=== PATIENT | male | born 1960 | race Caucasian/White ===

== ENCOUNTER 2024-04-18 15:58 | Emergency (ER) | payer SELFPAY ==
--- NOTE | ~2024-04-18 | XR_ITS ---
EXAMINATION: XR ABDOMEN KUB CLINICAL INDICATION: Pain. COMPARISON: None available. TECHNIQUE: AP view of the abdomen. FINDINGS: The bowel gas pattern is normal with no evidence of ileus or obstruction. No unusual soft tissue calcifications are noted. The bones are unremarkable. XR/XR KUB IMPRESSION: Unremarkable examination. Electronically signed by: Mohinder Shaw MD 04/19/2024 01:30 AM EDT RP
[2024-04-18 16:37] VITALS: BP 145/92; PULSE 98; RESP 18; TEMP 36.2; O2SAT 98; BMI 29.7
[2024-04-18 16:57] LABS: MANUAL DIFF FLAG NO
[2024-04-18 17:05] LABS: Basophils Percent Auto 0.6 % (0-2); Eosinophils Absolute Auto 0.3 X10*3/uL (0.0-0.4); Eosinophils Percent Auto 3.6 % (0-4); Hematocrit 45.1 % (42.0-52.0); Hemoglobin 14.9 g/dl (14.0-18.0); Imm Gran Abs Auto 0.03 X10*3/uL (0.00-0.03); Imm Gran Pct Auto 0.4 % (0.0-0.4); Lymphocytes Absolute Auto 3.8 X10*3/uL (1.2-4.9); Lymphocytes Percent Auto 52.6 % (20-40); Mean Corpuscular Hemoglobin 28.7 pg (27.0-33.0); Mean Corpuscular Volume 86.7 fL (80.0-98.0); Mean Platelet Volume 9.5 fL (9.4-12.4); Monocytes Absolute Auto 0.7 X10*3/uL (0.1-1.2); Monocytes Percent Auto 10.2 % (2-11); Neutrophils Absolute Auto 2.3 x10*3/uL (2.0-8.3); Neutrophils Percent Auto 32.6 % (45-73); Platelet Count 301 X10*3/uL (160-400); Red Cell Distribution Width 13.6 % (11.0-16.0); White Blood Count 7.2 X10*3/uL (4.8-10.8)
--- NOTE | 2024-04-18 17:08 | ED_ITS ---
HPI - Abdominal Pain General Chief Complaint: Abdominal Pain Stated Complaint: constipation Time Seen by Provider: 04/19/24 01:02 Source: patient and other (Caregiver) Mode of arrival: ambulatory History of Present Illness ED Provider: pantera BONDS narrative: Patient initially comes for constipation then he says moving his bowels when examined patient complaining of umbilical hernia which is reducible nontender patient does have developmental delay no vomiting Related Data Allergies Allergy/AdvReac Type Severity Reaction Status Date / Time No Known Allergies Allergy Verified 04/18/24 16:39 Review of Systems Review of Systems Yes Unobtainable due to mental condition PMFSH Social History Social History Advance Directives: No Advance Directives Information Provided: No Physical Exam ED Vital Signs: Vital Signs - 24 hr 04/18/24 20:17 04/19/24 01:42 04/19/24 02:10 Temperature 97.1 F 98 F 98 F Pulse Rate 78 87 87 Respiratory Rate 16 16 16 Blood Pressure 141/85 H 120/77 120/77 Pulse Oximetry 95 96 96 Oxygen Delivery Method Room Air Room Air Room Air BMI result Body Mass Index 29.7 Appearance: Alert. Awake. No acute distress. Eyes: PERRLA, No Nystagmus ENT: Pharynx normal. Oral Mucosa moist Neck: Normal inspection. Neck supple. CVS: Normal heart rate and rhythm. Pulses normal. Respiratory: No respiratory distress. Equal air entry bilateral, no wheezing/rales/rhonchi Abdomen: Soft and nontender. Small reducible umbilical hernia nontender Bowel sounds are present, no mass palpable, no CVA tenderness Skin: Skin warm and dry. Normal skin color. Normal skin turgor. Extremities: No lower extremity edema. No calf tenderness Neuro: Alert and awake No motor deficit. Course Course Course Narrative: Rapid medical exam performed by Berenice Mullins PA-C. 63-year-old male with history of developmental delays, [facility] a [facility], presents with abdominal pain. Patient was complaining that his ?belly abdomen hurt?. Patient struggles with constipation, however he has been having regular bowel movements. No nausea vomiting or fevers. The pain is generalized. Patient unable to describe. On exam, the patient's abdomen is soft, minimally distended versus obese abdomen, I can detect a ventral wall hernia, without evidence of incarceration. No guarding on exam. We will obtain screening labs, the patient will return to the weight room pending full assessment. Medical Decision Making Medical Decision Making [facility] Narrative: Patient with good bowel sounds soft abdomen with reducible umbilical hernia discharge patient back to [facility] labs are stable, KUB negative Differential Diagnosis Differential Diagnoses: The differential diagnosis associated with the presentation includes Fecal impaction/umbilical hernia/small-bowel obstruction Lab Data [facility] Lab Attestation statement: I reviewed the patient's lab results. 04/18/24 16:53 04/18/24 16:53 Labs: Lab Results 04/18/24 Range/Units 16:53 WBC 7.2 (4.8-10.8) X10*3/uL RBC 5.20 (4.60-5.80) X10*6/uL Hgb 14.9 (14.0-18.0) g/dl Hct 45.1 (42.0-52.0) % MCV 86.7 (80.0-98.0) fL MCH 28.7 (27.0-33.0) pg MCHC 33.0 (31.0-36.0) g/dl RDW 13.6 (11.0-16.0) % Plt Count 301 (160-400) X10*3/uL MPV 9.5 (9.4-12.4) fL Immature Gran % (Auto) 0.4 (0.0-0.4) % Neut % (Auto) 32.6 L (45-73) % Lymph % (Auto) 52.6 H (20-40) % [place] % (Auto) 10.2 (2-11) % Eos % (Auto) 3.6 (0-4) % Baso % (Auto) 0.6 (0-2) % Lymph # (Auto) 3.8 (1.2-4.9) X10*3/uL [place] # (Auto) 0.7 (0.1-1.2) X10*3/uL Eos # (Auto) 0.3 (0.0-0.4) X10*3/uL Baso # (Auto) 0.0 (0.0-0.2) X10*3/uL Abs Immat Gran (auto) 0.03 (0.00-0.03) X10*3/uL Absolute Neuts (auto) 2.3 (2.0-8.3) x10*3/uL Absolute Nucleated RBC 0.000 (0.0-0.012) X10*3/uL Nucleated RBC % (auto) 0.0 (0.0-0.2) /100WBC Sodium 141 (135-145) mmol/L Potassium 4.1 (3.3-5.1) mmol/L Chloride 109 H (96-108) mmol/L Carbon Dioxide 24 (22-29) mmol/L Anion Gap 12 (12-20) BUN 24 H (9-16) mg/dL Creatinine 0.87 (0.5-1.4) mg/dL Estim Creat Clear Calc 78.3 Estimated GFR > 60 Random Glucose 91 (60-115) mg/dL Calcium 10.4 H (8.4-10.2) mg/dL Magnesium 2.4 (1.6-2.6) mg/dL Total Bilirubin 0.2 (0.0-1.0) mg/dL AST 26 (5-37) U/L ALT 24 (0-40) U/L Alkaline Phosphatase 84 (39-117) U/L Total Protein 8.1 H (6.5-8.0) g/dL Albumin 4.5 (3.5-5.0) g/dL Lipase 38 (8-78) U/L Discharge Plan Discharge Clinical Impression: Reducible umbilical hernia Patient Disposition: Home, Self-Care Instructions: Umbilical Hernia (ED) Additional Instructions: No signs of significant constipation or umbilical hernia Umbilical hernia is reducible Follow with surgeon if pain in hernia continue Referrals: Hayden Phillips MD [Physician] - Interventions: ED Discharge Assessment Last Done: 04/19/24 02:10 Discharge Date/Time: 04/19/24 02:12 Print Language: Egyptian
[2024-04-18 17:48] LABS: Alanine Aminotransferase 24 U/L (0-40); Albumin Level 4.5 g/dL (3.5-5.0); Alkaline Phosphatase 84 U/L (39-117); Anion Gap 12 (12-20); Aspartate Amino Transferase 26 U/L (5-37); Bilirubin Total 0.2 mg/dL (0.0-1.0); Blood Urea Nitrogen 24 mg/dL (9-16); Calcium 10.4 mg/dL (8.4-10.2); Carbon Dioxide 24 mmol/L (22-29); Chloride 109 mmol/L (96-108); Creatinine Clr Calc Pharmacy 78.3; Estimated Glomerular Filt Rate > 60; Glucose Random 91 mg/dL (60-115); Lipase 38 U/L (8-78); Magnesium 2.4 mg/dL (1.6-2.6); Potassium 4.1 mmol/L (3.3-5.1); Sodium 141 mmol/L (135-145); Total Protein 8.1 g/dL (6.5-8.0)
[2024-04-18 20:17] VITALS: BP 141/85; PULSE 78; RESP 16; TEMP 36.2; O2SAT 95
--- NOTE | 2024-04-18 23:09 | PC.NURSE ---
Pt made loud statements to triage staff about wait times and stated he was leaving, would seek care elsewhere. Attempted redirection with no success.
[2024-04-19 01:42] VITALS: BP 120/77; PULSE 87; RESP 16; TEMP 36.6; O2SAT 96
[2024-04-19 02:10] VITALS: BP 120/77; PULSE 87; RESP 16; TEMP 36.6; O2SAT 96
== END 2024-04-19 02:12 | disposition home or self-care (01) ==
PROVIDERS: Physician Assistant Medical; Emergency Provider Internal Medicine
DX: K42.9 Umbilical hernia without obstruction or gangrene (principal); K59.00 Constipation, unspecified; Z79.899 Other long term (current) drug therapy
CPT/HCPCS: 36415; 74018; 80053; 83690; 83735; 85025; 99283

== ENCOUNTER 2024-11-02 18:04 | Emergency (ER) | payer MEDICAID, SELFPAY ==
--- NOTE | ~2024-11-02 | XR_ITS ---
CLINICAL HISTORY: eval for FB 2 view pelvis Comparison: None Findings: No acute fracture or dislocation. Mild degenerative changes of the lumbar spine. Bilateral hip joint spaces are preserved. Overlying the base of the penis there is a paper clip measuring 5.4 cm in length and 1.3 cm in width. IMPRESSION: There is a metallic paper clip within the base of the penis, possibly within the urethra. This document has been electronically signed by: Chau Smith MD on 11/02/2024 19:14:24
--- NOTE | ~2024-11-02 | CT_ITS ---
CLINICAL HISTORY: diffuse abd distention, known paperclip in penis CT Abdomen and Pelvis WO Contrast COMPARISON: CR/CA - XR PELVIS 1-2V - 11/02/24 18:45 EDT FINDINGS: Detail limited by artifacts. Normal liver. Normal spleen. Normal kidneys. Normal adrenal glands. Normal pancreas. No visible cholelithiasis. No biliary dilation. No evidence of bowel obstruction or colitis. Normal appendix. Unremarkable bladder. No ascites. No pneumoperitoneum. No lymphadenopathy. No acute fracture. Degenerative changes in the spine. No abdominal aortic aneurysm. Bilateral fat-containing inguinal hernias. Fat-containing umbilical hernia. Metallic foreign body (paper clip) in the region of the penile urethra, similar to prior. IMPRESSION: No acute findings. Unchanged metallic foreign body (paper clip) in the region of the penile urethra. This document has been electronically signed by: Joby Porter MD on 11/03/2024 02:43:11
[2024-11-02 18:27] VITALS: BP 127/99; PULSE 108; RESP 16; TEMP 36.6; O2SAT 95; BMI 26.2
--- NOTE | 2024-11-02 18:31 | ED.MALEGU ---
HPI - Male Genitourinary General Chief complaint: Skin/Abscess/Foreign Body Stated complaint: paper clip enlarged in penis 6 mos. Time Seen by Provider: 11/03/24 00:22 Source: patient and other ([facility] staff) Mode of arrival: ambulatory Limitations: no limitations History of Present Illness ED Provider: Dr. Yaneth Trevizo HPI Narrative: Patient comes to the emergency room accompanied by [place] [facility]. Patient has a developmental delay and unable to give much history. The story is a bit strange. Seems that patient came to the emergency room today because his director of strategic marketing noticed that his abdomen has been distended for weeks. Patient does not complaining of any abdominal pain. Initially they were giving patient MiraLax without any successful bowel movements. Also, the director of strategic marketing mentioned that a [place] [facility] staff was reviewing papers medical records and paperwork and seems that and imaging from [facility] from April of 2024 showed a retained foreign body in the penis, a paper clip. Seems that this was not addressed and patient did not complain about any pain hematuria or dysuria and was forgotten. Today when they reviewed the patient's records, they brought the patient to the emergency room to address both, the paperclip in patient's penis and the abdominal distention/chronic constipation Related Data Previous Rx's ?Medication ?Instructions ?Recorded polyethylene glycol 3350 17 17 g PO BID PRN laxative effect 11/03/24 gram/dose oral powder (Miralax) #476 grams Allergies Allergy/AdvReac Type Severity Reaction Status Date / Time No Known Allergies Allergy Verified 11/02/24 18:29 Review of Systems Review of Systems: Patient is poor historian, has developmental delay, does not have any complaints Yes Unobtainable due to mental condition [facility] Past Medical History Medical History (Updated 11/03/24 @ 03:22 by Yaneth Trevizo MD) History of developmental delay Social History Social History Advance Directives: No Advance Directives Information Provided: Yes Physical Exam Vital Signs: Vital Signs: Last Vital Signs Temp 98.5 F 11/02/24 23:43 Pulse 80 11/02/24 23:43 Resp 18 11/02/24 23:43 BP 131/76 11/02/24 23:43 Pulse Ox 95 11/02/24 23:43 O2 Del Method Room Air 11/02/24 23:43 BMI result Body Mass Index 26.2 Const: Other: Appearance: Alert. Oriented X3. No acute distress. Eyes: Pupils equal, round and reactive to light. ENT: Pharynx normal. Neck: Normal inspection. Neck supple. No lymph nodes noted. No crepitus CVS: Normal heart rate and rhythm. Pulses normal. Normal S1 and S2 Respiratory: No respiratory distress. Breath sounds normal. No Wheezing. No rales Abdomen: Soft , distended, does not seem to be in pain despite deep palpation in all 4 quadrants Normal male genitalia, does not seem to have any discharge or obvious deformity Skin: Skin warm and dry. Normal skin color. Normal skin turgor. Extremities: No lower extremity edema. No Lacerations. No Rash Neuro: Oriented X 3. No motor deficit. No sensory deficit. Moving all extremities. No slurred speech. CN 2 through 12 grossly intact Psych: calm, cooperative, normal affect Course Course Course Narrative: This is a Rapid Medical Exam performed in triage by Lillian Serrano PA-C. Full HPI, ROS and PE to be performed by primary ED provider. 63-year-old male with a past medical history developmental delay presenting to the ED c/o FB (paperclip) to penis x months. [facility] staff states they were reviewing patient's medical paperwork and noted he had foreign body in penis noted back to imaging from April at [facility]. On chart review patient has visible paper clip in penis on KUB dating to 04/18/2024 however was never read by Radiology. Concerned foreign body still in place. Patient denies complaints at present. No urinary complaints PE: Ambulating with steady gait. Nontoxic appearing Plan: UA, CT mg, pelvic x-ray Medical Decision Making Medical Decision Making [facility] Narrative: KUB: Metallic paper clip in the within the urethra And KUB of March of 2025, the tip a clip was already there. Patient is unable to give good history. However, patient's seems to be on bothered by it and did not tell anybody. CT scan of the abdomen/pelvis pending. Patient likely has severe constipation as well. I discuss the patient with Dr. Isael purdy from urology. Recommendations: Outpatient follow-up Differential Diagnosis Differential Diagnoses: The differential diagnosis associated with the presentation includes (Constipation, small-bowel obstruction, urethral foreign body) Lab Data MDM Lab Attestation statement: I reviewed the patient's lab results. Labs: Lab Results 11/02/24 Range/Units 20:46 Urine Color Yellow Urine Appearance Clear Urine pH 5.5 (5.0-9.0) Ur Specific [place] >= 1.030 H (1.005-1.025) Urine Protein Negative (Neg-Trace) mg/dL Urine Glucose (UA) Negative (Negative) mg/dL Urine Ketones Trace (Negative) mg/dL Urine Blood Negative (Negative) Urine Nitrite Negative (Negative) Ur Leukocyte Esterase Small (1+) H (Negative) Urine RBC 0-2 (0-2) /HPF Urine WBC 11-20 H (0-5) /HPF Ur Squamous Epith Cells 0-2 (0-2) /HPF Urine Bacteria None Seen (None Seen) Hyaline Casts 0-2 (0-2) /LPF Independent Interpretation I performed an independent interpretation of an: Plain X-Ray and CT Scan Radiology Impression Discussion of test interpretation with radiology: I have reviewed the radiologist's reading. Radiologist Impression: Detail limited by artifacts. Normal liver. Normal spleen. Normal kidneys. Normal adrenal glands. Normal pancreas. No visible cholelithiasis. No biliary dilation. No evidence of bowel obstruction or colitis. Normal appendix. Unremarkable bladder. No ascites. No pneumoperitoneum. No lymphadenopathy. No acute fracture. Degenerative changes in the spine. No abdominal aortic aneurysm. Bilateral fat-containing inguinal hernias. Fat-containing umbilical hernia. Metallic foreign body (paper clip) in the region of the penile urethra, similar to prior. IMPRESSION: No acute findings. Unchanged metallic foreign body (paper clip) in the region of the penile urethra. No acute fracture or dislocation. Mild degenerative changes of the lumbar spine. Bilateral hip joint spaces are preserved. Overlying the base of the penis there is a paper clip measuring 5.4 cm in length and 1.3 cm in width. IMPRESSION: There is a metallic paper clip within the base of the penis, possibly within the urethra. Independent Historian Clinical information obtained from an independent historian. History obtained from or confirmed by: Other Discharge Plan Discharge Clinical Impression: Constipation, Foreign body in male urethra Patient Disposition: Home, Self-Care Instructions: Constipation (ED) Additional Instructions: Please follow-up with your primary care physician tomorrow. If you have any worsening or new symptoms, please return to the emergency room or call 911 Prescriptions: New polyethylene glycol 3350 [Miralax] 17 gram/dose powder 17 g PO BID PRN (Reason: laxative effect) Qty: [phone] Referrals: Christelle Wright MD [Physician] - 11/06/24 Print Language: Chadian
[2024-11-02 20:53] LABS: Appearance Urine Clear; Color Urine Yellow; Glucose Urine UA Negative (Negative); Leukocyte Esterase Urine Small (1+) (Negative); Nitrite Urine Negative (Negative); PH 5.5 (5.0-9.0); Specific Gravity - Urine >= 1.030 (1.005-1.025); UMIC TRIGGER UACC YES; Urine Blood Negative (Negative); Urine Ketones Trace mg/dL (Negative); Urine Protein Negative (Neg-Trace)
[2024-11-02 20:58] LABS: Bacteria Urine None Seen (None Seen); Hyaline Casts Urine 0-2 /LPF (0-2); RBC Urine 0-2 /HPF (0-2); Squamous Epithelial Cell Urine 0-2 /HPF (0-2); UACC Culture Trigger YES
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
--- OUTSIDE RECORDS SUMMARY | 2024-11-02 21:09 | XMS_ITS | Clinical Summary ---
Author Organization [facility] Address [address] [place] [address] Care Team Providers Care Supervisor Cook Room Name Role Phone Provider, Conversion MD Primary Care Provider Un available Allergies No known active allergies Medications No known medications Active Problems No known active problems Immunizations Name Administration Dates Next Due Covid-19 MRNA Vaccine - Pfizer 12+ (Purple Cap) 11/29/2020,11/08/2020 Social History Tobacco Use Types Packs/Day Years Used Date Smoking Tobacco: Never Assessed Sex and Gender Information Value Date Recorded Sex Assigned at Not on file Gender Identity Not on file Sexual Orientation Not on file Last Filed Vital Signs Vital Sign Reading Time Taken Comments Blood Pressure - - Pulse 90 11/22/2020 11:41 AM EDT Temperature 37 ??C (98.6 ??F) 11/22/2020 11:41 AM EDT Respiratory Rate - - Oxygen Saturation 95% 11/22/2020 11:41 AM EDT Inhaled Oxygen Concentration - - Weight 81.6 kg (180 lb) 11/22/2020 11:41 AM EDT Height 162.6 cm (5' 4 ) 11/22/2020 11:41 AM EDT Body Mass Index 30.9 11/22/2020 11:41 AM EDT Plan of Treatment Health Maintenance Due Date Last Done Comments Hepatitis C Virus Screening 1960 HIV Screening 12/27/1972 DTaP/Tdap/Td Vaccines (1 - Tdap) 12/27/1978 Colonoscopy 12/27/2004 Pneumococcal Vaccines 50+ (1 of 1 - PCV) 12/27/2009 Zoster (Shingles) Vaccine (1 of 2) 12/27/2009 Influenza Vaccine 02/24/2024 COVID-19 Vaccine ( - 2023-2 5 season) 2024 11/29/2020, 11/08/2020 RSV Vaccine 60 years and older and Patients (1 - 1-dose 75+ series) 12/27/2034 Hepatitis B Vaccines Aged Out No long er eligible based on patient's age to complete this topic Pneumococcal Vaccine: Pediatric (0-5 Years) and At-Risk Patients (6 to 49 Years) Aged Out No longer eligible b ased on patient's age to complete this topic Care Teams Supervisor Cook Room Relationship Specialty Start Date End Date Provider, MD Kristal PCP - General 03/10/13
[2024-11-02 23:43] VITALS: BP 131/76; PULSE 80; RESP 18; TEMP 36.9; O2SAT 95
[2024-11-03 03:31] VITALS: BP 131/76; PULSE 80; RESP 18; TEMP 36.9; O2SAT 95
[2024-11-03 03:59] LABS: CT PCR NOT DETECTED (Not Detect.); NG PCR NOT DETECTED (Not Detect.)
== END 2024-11-03 03:31 | disposition home or self-care (01) ==
PROVIDERS: Physician Assistant; Emergency Provider Emergency Medicine
DX: K59.00 Constipation, unspecified (principal); T19.4XXA Foreign body in penis, initial encounter; W44.E0XA Non-magnetic metal object unspecified, entering into or through a natural orifice, initial encounter; R10.2 Pelvic and perineal pain; R62.50 Unspecified lack of expected normal physiological development in childhood; Z79.899 Other long term (current) drug therapy
CPT/HCPCS: 72170; 74176; 81001; 87086; 87491; 87591; 99283; 99284

== ENCOUNTER → 2024-11-02 18:31 | Outpatient (BNV) | payer SELFPAY | PROVIDERS: Visit Provider Radiology Diagnostic Radiology | DX: T19.4XXA Foreign body in penis, initial encounter (principal) | CPT/HCPCS: 72170 ==

== ENCOUNTER → 2024-11-03 00:31 | Outpatient (BNV) | payer MEDICAID, SELFPAY | PROVIDERS: Emergency Provider Emergency Medicine; Visit Provider Radiology Diagnostic Radiology | DX: R14.0 Abdominal distension (gaseous) (principal) | CPT/HCPCS: 74176 ==

== ENCOUNTER 2024-12-14 10:09 | Outpatient (AMB) | payer MEDICAID, SELFPAY ==
--- NOTE | 2024-12-14 10:23 | MHC.OFFVIS ---
Intake Visit Reasons: Foreign body in urethra Intake Note: Patient is present for FOREIGN BODY IN URETHRA Urology Medication:NONE Antibiotic Allergy:NONE Blood Thinner:NONE TODAY'S PVR:83ML'S Choir Member Required: No Allergies No Known Allergies Allergy (Verified 12/14/24 10:24) HPI Comments Details: Lincoln is a resident of [facility] for developmental delay. Accompanied by care worker. He is seen for the following urologic conditions - urethral foreign body Prior history placing objects down his urethra including pen and paper clip Recurrent paperclip placement Plan for removal under anesthesia Placement date uncertain Prior imaging from [facility] April 2024 shows foreign body in place [facility] Medical History (Updated 12/14/24 @ 11:01 by Mathew Varner MD) Foreign body in penis History of developmental delay Review of Systems Const Denies chills and Denies fever(s) Card Reports no additional complaints and Denies syncope Resp Denies cough GI Denies abdominal pain and Denies heartburn Reports as per HPI and Denies change in libido Neuro Denies syncope Psych Denies change in libido Endo Denies change in libido Physical Exam Const General: cooperative, healthy appearing, comfortable and no acute distress Orientation/consciousness: patient oriented x3 HEENT Face and sinus: Yes normal facial exam Mouth: moist mucous membranes Neck Neck: Yes normal visual inspection, Yes full ROM and Yes trachea midline Chest Chest palpation & inspection: normal inspection of the chest Resp Effort & Inspection: normal respiratory effort, able to speak in complete sentences and no respiratory distress GI Inspection: Yes normal to inspection Back/Spine/Pelvis Cervical Spine: normal cervical lordosis Thoracic/Lumbar Spine: thoracic and lumbar spine normal to inspection Skin General skin exam: no rashes or lesions noted Neuro General: patient oriented x3, gait normal, tone normal and moves all extremities Extrem General: Yes normal to inspection and Yes capillary refill normal Office Procedures Post Void Residual Post Residual Void Post Void Residual (PVR): 83 [id number] Void Residual by ultrasound Assessment & Plan Assessment & Plan (1) Foreign body in male urethra: Code(s): T19.0XXA - Foreign body in urethra, initial encounter Category: Medical Plan Risks, benefits and alternatives to therapy were discussed. These include but are not limited to infection, bleeding, damage to local organs and tissues, need for further interventions. Anesthetic risks regarding cardiac arrhythmia, blood clots, and potential mortality were discussed. The patient understands the typical recovery time and the outpatient nature of the procedure. After consideration of these risks the patient gives full informed consent and they wish to move ahead with the procedure. Cystoscopy, foreign body removal Orders: Orders AMB Urinalysis Automated Today Z13.9 - Encounter for screening, unspecified Patient Instructions: This note is constructed using voice recognition software. While every effort has been made to ensure accuracy heel builder machine errors may have been included. Imaging studies, laboratory and physical exam results were discussed and reviewed in detail. No major barriers to patient understanding were identified. An opportunity to ask questions regarding the treatment plan was provided. All questions were answered. The patient expressed understanding and agreement with the above treatment plan. The patient is aware they should contact our office by phone for worsening of their current condition or the appearance of new urologic symptoms. Compliance is encouraged with any medications and followup testing that is ordered. It is a privilege to participate in the urologic care of your patient. If you have any questions or concerns regarding treatment for the above conditions, or other urologic issues, please do not hesitate to contact me. The office telephone contact is [phone]. Sincerely, Dr Mathew Varner MD, [facility] - Urology Compassionate Specialist Care for the Genitourinary System Coding Level of Care Code New Pt Level 4 (43252) Diagnoses Foreign body in male urethra T19.0XXA CPT Codes Post Residual Void - PVR CPT Code: 71233-[id number] Void Residual by ultrasound ([id number])
--- OUTSIDE RECORDS SUMMARY | 2024-12-14 10:33 | XMS_ITS | Clinical Summary ---
Author Organization [facility] Address [address] [place] [address] Care Team Providers Care Commercial Lines Underwriter Name Role Phone Provider, Conversion MD Primary Care Provider Un available Allergies No known active allergies Medications No known medications Active Problems No known active problems Immunizations Immunization Administration Dates Next Due Covid-19 MRNA Vaccine - Pfizer 12+ (Purple Cap) 11/29/2020,11/08/2020 Social History Tobacco Use Types Packs/Day Years Used Date Smoking Tobacco: Never Assessed Sex and Gender Information Value Date Recorded Sex Assigned at Not on file Legal Sex Male 12:32 PM EDT Gender Identity Not on file Sexual Orientation [...] Zoster (Shingles) Vaccine (1 of 2) 12/27/2009 COVID-19 Vaccine ( - 2023-2 5 season) 2024 11/29/2020, 11/08/2020 Influenza Vaccine 02/23/2025 RSV Vaccine 60 years and older and Patients (1 - 1-dose 75+ series) 12/27/2034 Hepatitis B Vaccines Aged Out No long er eligible based on patient's age to complete this topic Insurance [facility] Care Teams Commercial Lines Underwriter Relationship Specialty Start Date End Date ProviderKristal MD PCP - General 03/10/13
== END 2024-12-14 11:01 | disposition home or self-care (01) ==
LOC: HO.HUSH 10:10
PROVIDERS: Visit Provider Urology
DX: T19.0XXA Foreign body in urethra, initial encounter (principal)
CPT/HCPCS: 99204

== ENCOUNTER → 2024-12-14 10:09 | Outpatient (BNVA) | payer MEDICAID, SELFPAY | PROVIDERS: Visit Provider Urology | DX: T19.0XXA Foreign body in urethra, initial encounter (principal); X58.XXXA Exposure to other specified factors, initial encounter; Y93.9 Activity, unspecified; Y92.9 Unspecified place or not applicable; Y99.9 Unspecified external cause status | CPT/HCPCS: 51798; 99202 ==